=== PATIENT | female | born 1995 | race African-American/Black ===

== ENCOUNTER 2016-10-02 14:38 | Emergency (ER) | payer MEDICAID ==
[~2016-10-02] VITALS: Ht 162.6 cm; Wt 90.0 kg
[2016-10-02 14:39] VITALS: BP 142/76; PULSE 104; RESP 16; TEMP 98.2; O2SAT 97
--- NOTE | 2016-10-02 15:31 | PD ---
HPI Chief Complaint: Abdominal Pain Time Seen by Provider: 15:31 Travel History International Travel<30 days: No Contact w/Intl Traveler<30days: No Traveled to known affect area: No History of Present Illness HPI 21 year-old female presents to emergency department for evaluation of nausea. Patient states that she is late on her menstrual cycle and she blew she may be . States that her menstrual cycle was supposed to be last week but has not yet started. Denies any vaginal discharge or bleeding. No lower abdominal pain. States that she has had unprotected intercourse. Denies any pain. No vomiting. No diarrhea. When asked if she simply would like to know she is , the patient replies yes. PFSH Past Medical History Medical History: Denies Significant Hx ?: Unknown Social History Alcohol Use: No Tobacco Use: No Substance Use: No Allergies-Medications (Allergen,Severity, Reaction): Coded Allergies: No Known Allergies (Unverified , 10/02/16) Review of Systems Except as stated in HPI: all other systems reviewed are Neg Physical Exam Narrative GENERAL: Well-nourished female patient, in no acute distress SKIN: Warm and dry. HEAD: Atraumatic. Normocephalic. EYES: Pupils equal and round. No scleral icterus. No injection or drainage. ENT: No nasal bleeding or discharge. Mucous membranes pink and moist. NECK: Trachea midline. No JVD. CARDIOVASCULAR: Elevated rate and rhythm. No murmur appreciated. RESPIRATORY: No accessory muscle use. Clear to auscultation. Breath sounds equal bilaterally. Abdomen: Abdomen soft, non-tender, nondistended. Positive bowel sounds. No hepato-splenomegaly, or palpable masses. No guarding. MUSCULOSKELETAL: No obvious deformities. No clubbing. No cyanosis. No edema. NEUROLOGICAL: Awake and alert. No obvious cranial nerve deficits. Motor grossly within normal limits. Normal speech. Data Data Last Documented VS Vital Signs Date Time Temp Pulse Resp B/P Pulse Ox O2 Delivery O2 Flow Rate FiO2 10/02/16 14:39 98.2 104 16 142/76 97 Orders Ed Urine Pregnancytest Poc (10/02/16 15:30) Urinalysis - C+S If Indicated (10/02/16 15:30) Labs Laboratory Tests Test 10/02/16 15:40 Urine Color LIGHT-YELLOW Urine Turbidity CLEAR Urine pH 6.5 Urine Specific [place] 1.008 Urine Protein NEG mg/dL Urine Glucose (UA) NEG mg/dL Urine Ketones NEG mg/dL Urine Occult Blood NEG Urine Nitrite NEG Urine Bilirubin NEG Urine Urobilinogen LESS THAN 2.0 MG/DL Urine Leukocyte Esterase NEG Urine WBC LESS THAN 1 /hpf Urine Squamous Epithelial <1 /hpf Cells Microscopic Urinalysis Comment CULT NOT INDICATED MDM Medical Decision Making Medical Screen Exam Complete: Yes Emergency Medical Condition: Yes Medical Record Reviewed: Yes Differential Diagnosis intrauterine versus ectopic versus UTI versus STD versus normal examination Narrative Course 21 year-old female presents to emergency department for evaluation. Patient appears well and without distress. Exam is benign. She has mild tachycardic initially but upon reassessment, heart rate has reduced to 92 bpm. Urinalysis is without acute concern. Urine is negative. I have provided these results with the patient. I have counseled her on safe sex practices. She'll be discharged at this time to return immediately with any acute worsening of symptoms. Diagnosis Primary Impression: Missed menses Additional Impression: Nausea Referrals: Machine Tail[facility] Primary Care Physician Patient Instructions: General Instructions, Menstruation (ED) Departure Forms: Tests/Procedures, Work Release Enter return to work date: Oct 04, 2016 Additional Instructions: Follow-up they're attending psychiatrist Maintain adequate oral hydration Utilize condoms prophylaxis when having intercourse Return immediately to the emergency department with any acute worsening symptoms Med/Other Pt SpecificInfo: No Meds Exist/No RX given Disposition: 01 DISCHARGE HOME Condition: Stable Lisa Nichols JODY Oct 02, 2016 15:31
[2016-10-02 16:20] LABS: BLOOD, URINE NEG (NEG); GLUCOSE,URINE NEG (NEG); KETONE, URINE NEG (NEG); NITRITE,URINE NEG (NEG); PH, URINE 6.5 (5.0-8.5); SQUAMOUS EPITHELIAL CELL URINE <1 /hpf (0-5); URINE COLOR LIGHT-YELLOW (YELLW/STRAW)
[2016-10-02 16:25] LABS: COMMENT (UR) CULT NOT INDICATED; CULTURE IF INDICATED CULT NOT INDICATED
== END 2016-10-02 16:56 | disposition home or self-care (01) ==
LOC: NETRI 14:38
DX: R10.9 Unspecified abdominal pain (principal); R11.0 Nausea
CPT/HCPCS: 81001; 84703; 99283

== ENCOUNTER 2016-10-28 21:34 | Emergency (ER) | payer SELFPAY ==
[~2016-10-28] VITALS: Ht 162.6 cm; Wt 93.0 kg
[2016-10-28 21:36] VITALS: BP 140/72; PULSE 107; RESP 16; TEMP 99.5; O2SAT 100
[2016-10-28] MEDS ORDERED: LACTCAP8 PO (21:54)
[2016-10-28 22:13] VITALS: BP 142/86; PULSE 100; RESP 20; O2SAT 100
--- NOTE | 2016-10-28 22:20 | PD ---
HPI Chief Complaint: Complaint Time Seen by Provider: 22:15 Travel History International Travel<30 days: No Contact w/Intl Traveler<30days: No Traveled to known affect area: No History of Present Illness HPI 21-year-old female that presents to the ED for evaluation of blood in the urine , flank pain and back pain as well as abdominal pain and possible . Patient reports that his been going for a month. Per patient she missed her period. She does no know when was the last time she was on her period. Patient basically complains of lower pelvic pain. The pain is 5 out of 10. She also feels that she is nauseous. She has not seen anybody for this. She has not done any test. Patient actually was here about a month ago with similar complaints and had a test that was negative which she apparently left without being seen. She denies any chest pain or shortness of breath. She denies any vaginal discharge. She is really not a good historian and is not very forthcoming with information. PFSH Past Medical History ?: Not LMP: 09/29/16 Social History Alcohol Use: No Tobacco Use: No Substance Use: No Allergies-Medications (Allergen,Severity, Reaction): Coded Allergies: No Known Allergies (Unverified , 10/28/16) Reported Meds & Prescriptions Reported Meds & Active Scripts Active Reported Probiotic (Lactobacillus Acidophilus) 1 Cap Cap 1 Cap PO TIDAC Review of Systems General / Constitutional: No: Fever, Chills, Weight Gain, Weight Loss, Other Eyes: No: Diploplia, Blurred Vision, Photophobia, Drainage, Redness, Foreign Body Sensation, Pain, Tearing, Blind Spots, Visual changes, Blindness, Other HENT: No: Headaches, Vertigo, Lightheadedness, Sore Throat, Rhinitis, Rhinorrhea, Congestion, Nosebleed, Neck Stiffness, Neck Pain, Masses, Gingival Bleeding, Dental Difficulties, Ear Discharge, Earache, Other Cardiovascular: No: Chest Pain or Discomfort, Palpitations, Irregular Rhythm, Tachycardia, Diaphoresis, Syncope, Dyspnea on exertion, Varicosities, Edema, Cyanosis, Varicosities, Phlebitis, Claudication, Other Respiratory: No: Cough, Shortness of Breath, Wheezing, Sneezing, Orthopnea, Hemoptysis, Stridor, Night Sweats, Pleuritic Pain, Other Gastrointestinal: Positive: Nausea, Vomiting, Abdominal Pain, No: Diarrhea, Hematemesis, Hematochezia, Constipation, Changes in Bowel Habits, Indigestion, Dysphagia, Loss of Appetite, Other Genitourinary: Positive: Urgency, Frequency, Hematuria, Pelvic Pain, Flank Pain , No: Dysuria, Nocturia, Decreased Urinary Output, Oliguria, Hesitancy, Dribbling, Incontinence, Dyspareunia, Discharge, Dysmenorrhea, Menorrhagia, Metorrhagia, Vaginal Bleeding, Other Musculoskeletal: No: Myalgias, Arthralgias, Limited ROM, Weakness, Cramping, Edema, Pain, Atrophy, Other Skin: No Rash, No Itching, No Dryness, No Lumps, No Hives, No Change in Pigmentation, No Change in nails, No Alopecia, No Lesions, No Breast Lumps, No Breast Tenderness, No Breast Swelling, No Other Neurologic: No: Weakness, Dizziness, Syncope, Focal Abnormalities, Coordination Problem, Tremor, Ataxia, Headache, Change in Mentation, Slurred Speech, Paresthesia, Incontinence, Seizures, Sensory Disturbance, Other Psychiatric: No: Anxiety, Depression, Suicidal Ideations, Disorder of Thought, Mood Disorder, Substance Abuse, Homicidal Ideation, Other Endocrine: No: Heat Intolerance, Cold Intolerance, Polyuria, Polydipsia, Other Hematologic/Lymphatic: No: Easy Bruising, Lymph Node Enlargement, Other Physical Exam Narrative GENERAL: SKIN: Warm and dry. HEAD: Atraumatic. Normocephalic. EYES: Pupils equal and round. No scleral icterus. No injection or drainage. ENT: No nasal bleeding or discharge. Mucous membranes pink and moist. Tongue is midline. No uvula deviation. NECK: Trachea midline. No JVD. CARDIOVASCULAR: Regular rate and rhythm. No murmurs, S3, S4. RESPIRATORY: No accessory muscle use. Clear to auscultation. Breath sounds equal bilaterally. GASTROINTESTINAL: Abdomen soft, non-tender, nondistended. Hepatic and splenic margins not palpable. MUSCULOSKELETAL: Extremities without clubbing, cyanosis, or edema. No obvious deformities. Full range of motion of the upper and lower extremities bilaterally. 2+ pulses bilaterally. No obvious CVA tenderness noted. NEUROLOGICAL: Awake and alert. No obvious cranial nerve deficits. Motor grossly within normal limits. Five out of 5 muscle strength in the arms and legs. Normal speech. PSYCHIATRIC: Appropriate mood and affect; insight and judgment normal. Data Data Last Documented VS Vital Signs Date Time Temp Pulse Resp B/P Pulse Ox O2 Delivery O2 Flow Rate FiO2 10/28/16 22:13 20 10/28/16 21:36 99.5 107 140/72 100 Room Air Orders Complete Blood Count With Diff (10/28/16 21:46) Basic Metabolic Panel (Bmp) (10/28/16 21:46) Urinalysis - C+S If Indicated (10/28/16 21:46) Ed Urine Pregnancytest Poc (10/28/16 21:46) Beta Hcg (Quant/Titer) (10/28/16 22:08) Us Pelvis (Ques Pr/Ect)W Trans (10/28/16 ) MDM Medical Decision Making Medical Screen Exam Complete: Yes Emergency Medical Condition: Yes Medical Record Reviewed: Yes Differential Diagnosis versus ectopic versus UTI versus cystitis versus pyelonephritis Narrative Course 21-year-old female that presents to the ED for evaluation of lower abdominal pain. Patient was properly examined and was found to have signs and symptoms consistent with . test here was O+. Ultrasound was ordered. Labs were ordered. Patient will be signed out to my attending pending labs and imaging. Rajan Baez Oct 28, 2016 22:20
[2016-10-28 22:22] LABS: AUTOMATED NEUTROPHIL # 5.2 TH/MM3 (1.8-7.7); BASOPHIL # 0.1 TH/MM3 (0-0.2); BASOPHIL % 0.7 % (0.0-2.0); EOSINOPHIL # 0.1 TH/MM3 (0-0.4); EOSINOPHIL % 1.7 % (0.0-4.0); HEMATOCRIT 29.3 % (35.0-46.0); LYMPHOCYTE # 1.9 TH/MM3 (1.0-4.8); MEAN CELL VOLUME 61.9 FL (80.0-100.0); MEAN CORPUSCULAR HEMOGLOBIN 19.6 PG (27.0-34.0); MEAN CORPUSCULAR HGB CONC 31.6 % (32.0-36.0); MONO % 12.9 % (0.0-8.0); NEUT % 61.7 % (16.0-70.0); PLATELET COUNT 468 TH/MM3 (150-450); RED BLOOD COUNT 4.73 MIL/MM3 (4.00-5.30); RED CELL DISTRIBUTION WIDTH 17.9 % (11.6-17.2); WHITE BLOOD COUNT 8.4 TH/MM3 (4.0-11.0)
[2016-10-28 22:25] LABS: BLOOD, URINE NEG (NEG); COMMENT (UR) CULT NOT INDICATED; CULTURE IF INDICATED CULT NOT INDICATED; GLUCOSE,URINE NEG (NEG); KETONE, URINE NEG (NEG); NITRITE,URINE NEG (NEG); PH, URINE 6.5 (5.0-8.5); SQUAMOUS EPITHELIAL CELL URINE 11 /hpf (0-5); URINE COLOR YELLOW (YELLW/STRAW)
[2016-10-28 22:37] LABS: HEMO FLAGS AUTO DIFF
[2016-10-28 22:45] LABS: BICARBONATE 23.5 MEQ/L (21.0-32.0); POTASSIUM 3.1 MEQ/L (3.5-5.1)
[2016-10-28 23:46] LABS: OVALOCYTES 1+ (NORMAL); SCAN/DIFF AUTO DIFF CONFIRMED
[2016-10-29] VITALS: BP 135/80; PULSE 95; RESP 20; O2SAT 100
--- NOTE | 2016-10-29 02:49 | RADRPT ---
EXAM DATE/TIME: 10/29/2016 01:24 [facility] COMPARISON: No previous studies available for comparison. INDICATIONS : Pelvic pain during . LAB(S): Beta-hC MEDICAL HISTORY : . SURGICAL HISTORY : None. ENCOUNTER: Initial ACUITY: 2 weeks PAIN SCORE: 4/10 LOCATION: Bilateral pelvis MEASUREMENTS: UTERUS: 7.5 x 4.4 x 5.0 cm ENDOMETRIAL STRIPE: 14 mm RIGHT OVARY: 2.5 x 1.7 x 2.1 cm LEFT OVARY: 3.9 x 2.7 x 2.8 cm FINDINGS: UTERUS: Small anechoic structure within the endometrium is noted possibly early gestational sac without ident ifiable pole or yolk sac at this time. RIGHT OVARY: Ovary contains no mass or significant cystic lesion. LEFT OVARY: Complex nonvascular cystic structure of the left ovary measuring 2.6 x 2.3 x 2.5 cm with surrounding blood flow, nonspecific, possible corpus luteum cyst. MISCELLANEOUS: Small amount of free fluid in the cul-de-sac. CONCLUSION: 1. No identifiable pole or yolk sac within the uterus however a tiny anechoic structure in the endometrium may reflect an early gestational sac, and continued sonographic followup recommended. 2. Free fluid is noted within the pelvis. 3. Nonspecific complex cyst left ovary possible corpus luteum cyst. Willian Brown MD on October 29, 2016 at 2:45 Board Certified Radiologist. This report was verified electronically.
--- NOTE | 2016-10-29 03:15 | PD ---
Physical Exam Narrative Patient was seen and examined with my porcelain buildup assistant. Data Data Last Documented VS Vital Signs Date Time Temp Pulse Resp B/P Pulse Ox O2 Delivery O2 Flow Rate FiO2 10/29/16 00:00 95 20 135/80 100 Room Air 10/28/16 21:36 99.5 Orders Complete Blood Count With Diff (10/28/16 21:46) Basic Metabolic Panel (Bmp) (10/28/16 21:46) Urinalysis - C+S If Indicated (10/28/16 21:46) Ed Urine Pregnancytest Poc (10/28/16 21:46) Beta Hcg (Quant/Titer) (10/28/16 22:00) Us Pelvis (Ques Pr/Ect)W Trans (10/29/16 ) Labs Laboratory Tests Test 10/28/16 22:00 White Blood Count 8.4 TH/MM3 Red Blood Count 4.73 MIL/MM3 Hemoglobin 9.3 GM/DL Hematocrit 29.3 % Mean Corpuscular Volume 61.9 FL Mean Corpuscular Hemoglobin 19.6 PG Mean Corpuscular Hemoglobin 31.6 % Concent Red Cell Distribution Width 17.9 % Platelet Count 468 TH/MM3 Mean Platelet Volume 8.1 FL Neutrophils (%) (Auto) 61.7 % Lymphocytes (%) (Auto) 23.0 % Monocytes (%) (Auto) 12.9 % Eosinophils (%) (Auto) 1.7 % Basophils (%) (Auto) 0.7 % Neutrophils # (Auto) 5.2 TH/MM3 Lymphocytes # (Auto) 1.9 TH/MM3 Monocytes # (Auto) 1.1 TH/MM3 Eosinophils # (Auto) 0.1 TH/MM3 Basophils # (Auto) 0.1 TH/MM3 CBC Comment AUTO DIFF Differential Comment AUTO DIFF CONFIRMED Ovalocytes 1+ Urine Color YELLOW Urine Turbidity HAZY Urine pH 6.5 Urine Specific [place] 1.023 Urine Protein TRACE mg/dL Urine Glucose (UA) NEG mg/dL Urine Ketones NEG mg/dL Urine Occult Blood NEG Urine Nitrite NEG Urine Bilirubin NEG Urine Urobilinogen LESS THAN 2.0 MG/DL Urine Leukocyte Esterase NEG Urine RBC LESS THAN 1 /hpf Urine WBC LESS THAN 1 /hpf Urine Squamous Epithelial 11 /hpf Cells Microscopic Urinalysis Comment CULT NOT INDICATED Sodium Level 138 MEQ/L Potassium Level 3.1 MEQ/L Chloride Level 105 MEQ/L Carbon Dioxide Level 23.5 MEQ/L Anion Gap 10 MEQ/L Blood Urea Nitrogen 8 MG/DL Creatinine 0.77 MG/DL Estimat Glomerular Filtration 116 ML/MIN Rate Random Glucose 110 MG/DL Calcium Level 8.8 MG/DL Human Chorionic Gonadotropin, 1671 MIU/ML Quant MDM Supervised Visit with AMAURY: Yes Interpretation(s) 3:06 AM. Pelvic ultrasound shows no identifiable pole or yolk sac within the uterus however tiny anechoic structure in the endometrial made reflect an early gestational sac. Free fluid noted within the pelvis. Nonspecific complex cyst left ovary possible corpus luteum cyst. CBC hemoglobin 9.3 hematocrit 39.3. MCV 61.9. Potassium 3.1. Beta hCG 1671. Diagnosis Primary Impression: related pelvic pain in first trimester, antepartum Patient Instructions: General Instructions Additional Instruction: vitamins as directed. Tylenol for pain. Follow-up with personal physician for repeat beta hCG in 2-3 days. Return if increasing abdominal pelvic pain, vaginal bleeding. Med/Other Pt SpecificInfo: No Meds Exist/No RX given Disposition: 01 DISCHARGE HOME Condition: Stable Puma Nelson MD Oct 29, 2016 03:15
[2016-10-29 03:23] VITALS: BP 120/66
[2016-10-30] MEDS ORDERED: FERR325T PO (17:49)
== END 2016-10-29 03:23 | disposition home or self-care (01) ==
LOC: NEPE 21:34
DX: O26.891 Other specified pregnancy related conditions, first trimester (principal); R10.2 Pelvic and perineal pain; R31.9 Hematuria, unspecified; M54.9 Dorsalgia, unspecified
CPT/HCPCS: 76700; 76817; 80048; 81001; 84702; 84703; 85025

== ENCOUNTER 2016-10-30 15:48 | Emergency (ER) | payer SELFPAY ==
[~2016-10-30] VITALS: Ht 162.6 cm; Wt 92.0 kg
[~2016-10-30 15:48] MED LIST: LACTCAP8 PO
[2016-10-30 15:50] VITALS: BP 134/74; PULSE 75; RESP 14; TEMP 98; O2SAT 98
--- NOTE | 2016-10-30 16:46 | PD ---
HPI Chief Complaint: Related Problem Time Seen by Provider: 16:38 Travel History International Travel<30 days: No Contact w/Intl Traveler<30days: No Traveled to known affect area: No History of Present Illness HPI 21-year-old female presents for repeat beta hCG. The patient's last menstrual period was September 24. She presented here on October 28 and was found to be with a beta hCG of 1671. At that point in time an ultrasound revealed no obvious gestational sac however there was a tiny anechoic extractor , possibly an early gestational sac and the radiologist recommended follow-up sonographic study. The patient was instructed to return here. She is complaining of mild suprapubic discomfort. She reports that during her last visit she was having some vaginal bleeding but that has resolved. She has not yet established care with an CREATIVE WRITING PROFESSOR. She has no other complaints. PFSH Past Medical History ?: LMP: 09/25/16 : 0 Social History Alcohol Use: No Tobacco Use: No Substance Use: No (hx of pot ) Allergies-Medications (Allergen,Severity, Reaction): Coded Allergies: No Known Allergies (Unverified , 10/28/16) Reported Meds & Prescriptions Reported Meds & Active Scripts Active Ferrous Sulfate 325 Mg Tab 325 Mg PO DAILY Reported Probiotic (Lactobacillus Acidophilus) 1 Cap Cap 1 Cap PO TIDAC Review of Systems Except as stated in HPI: all other systems reviewed are Neg Physical Exam Narrative GENERAL: Well-nourished female in no acute distress SKIN: Warm and dry. HEAD: Atraumatic. Normocephalic. EYES: Pupils equal and round. No scleral icterus. No injection or drainage. ENT: No nasal bleeding or discharge. Mucous membranes pink and moist. NECK: Trachea midline. No JVD. CARDIOVASCULAR: Regular rate and rhythm. No murmur appreciated. RESPIRATORY: No accessory muscle use. Clear to auscultation. Breath sounds equal bilaterally. GASTROINTESTINAL: Abdomen soft, non-tender, nondistended. Hepatic and splenic margins not palpable. MUSCULOSKELETAL: No obvious deformities. No edema. NEUROLOGICAL: Awake and alert. No obvious cranial nerve deficits. Motor grossly within normal limits. Normal speech. PSYCHIATRIC: Appropriate mood and affect; insight and judgment normal. Data Data Last Documented VS Vital Signs Date Time Temp Pulse Resp B/P Pulse Ox O2 Delivery O2 Flow Rate FiO2 10/30/16 15:50 98.0 75 14 134/74 98 Orders Beta Hcg (Quant/Titer) (10/30/16 16:42) Labs Laboratory Tests Test 10/30/16 16:45 Human Chorionic Gonadotropin, 3759 MIU/ML Quant MDM Medical Decision Making Medical Screen Exam Complete: Yes Emergency Medical Condition: Yes Medical Record Reviewed: Yes Differential Diagnosis Early intrauterine , demise, ectopic Narrative Course 21-year-old female with a last menstrual period approximately September 24 presents for repeat beta hCG, seen here 2 days ago with a beta hCG of 1671. The patient only had an ultrasound about 36 hours ago and I discussed with the crane service technician and likely the ultrasound still be too early to show any significant change. Fortunately the patient's examination is benign. The patient's beta hCG has appropriately more than doubled, today it is 3759. The patient was reassured. She was counseled on the importance of close follow-up and return for any acutely new or worsening symptoms such as new abdominal pain , vaginal bleeding. Reviewed the patient's previous lab work from 2 days ago does also reveal a microcytic anemia, no personal or family history of thalassemia. She has no symptoms to suggest acute anemia. The patient will be started on iron supplementation and she is encouraged to follow-up for repeat hemoglobin as an outpatient Diagnosis Primary Impression: Early stage of Additional Instructions: Begin vitamins. Take iron supplements. Stay well hydrated and well- nourished. Today your hormone (BHCG) was 3759. Your was too early to confirm that the is inside of the uterus. It is important to follow up closely with an CREATIVE WRITING PROFESSOR. Return for any acutely new or worsening symptoms such as severe abdominal pain, persistent vaginal bleeding Also has discussed, follow-up with a primary care physician to repeat hemoglobin test. Med/Other Pt SpecificInfo: Prescription(s) given Scripts Ferrous Sulfate 325 Mg [id number] Mg PO DAILY #30 TAB Ref 0 Prov:Phan Zambrano MD 10/30/16 Disposition: 01 DISCHARGE HOME Condition: Stable Balwinder Gilman Oct 30, 2016 16:46
[2016-10-30 17:46] LABS: BETA HCG QUANT 3759 MIU/ML (0-5)
[2016-10-30] MEDS ORDERED: FERR325T PO (17:49)
== END 2016-10-30 18:15 | disposition home or self-care (01) ==
LOC: NETRI 15:48
DX: O26.891 Other specified pregnancy related conditions, first trimester (principal); Z3A.00 Weeks of gestation of pregnancy not specified
CPT/HCPCS: 84702; 99283